=== PATIENT | female | born 1945 | race Caucasian/White ===

== ENCOUNTER 2020-05-18 17:12 | Inpatient (IN) ==
[2020-05-18] MEDS ORDERED: 0.9 % Sodium Chloride 1,000 ML IVC ONE (17:15)
[2020-05-18 18:00] LABS: Bilirubin,Urine Negative (Negative); Blood,Urine Negative (Negative); Clarity,Urine Clear (Clear); Color,Urine Light-Yellow (Yellow); Glucose,Urine (UA) Normal (Normal); Ketones,Urine Negative (Negative); Leukocyte Esterase,Urine Negative (Negative); Nitrite,Urine Negative (Negative); Protein,Urine Negative (Neg-Trace); Specific Gravity,Urine 1.013 (1.010-1.025); Urobilinogen,Urine Normal (Normal)
[2020-05-18] MEDS ORDERED: Piperacillin/Tazobactam 3.375 GM in 0.9 % Sodium Chloride Mini Bag 100 ML IVPB ONE (18:11)
[2020-05-18] MEDS ORDERED: Azithromycin 500 MG in 0.9 % Sodium Chloride 250 ML IVPB ONE (18:11)
[2020-05-18] MEDS ORDERED: Vancomycin 1,250 MG/262.5 ML IV.SOLN IVPB ONE (18:20)
[2020-05-18 18:41] LABS: Basophils % 0.2 %; Eosinophils # 0.1 K/mcL (0.0-0.6); Eosinophils % 0.9 %; Hematocrit 35.3 % (35.3-44.9); Hemoglobin 10.5 g/dL (11.5-15.4); Immature Granulocytes % 0.6 % (0-4); Lymphocytes # 0.4 K/mcL (0.6-4.6); Lymphocytes % 4.1 %; Mean Corpuscular HGB Conc 29.7 g/dL (31.6-35.5); Mean Corpuscular Hemoglobin 22.9 pg (28.0-33.3); Mean Corpuscular Volume 77.1 fL (83.0-100.0); Mean Platelet Volume 9.7 fL (9.4-12.4); Monocytes # 0.3 K/mcL (0.0-1.3); Monocytes % 3.6 %; Neutrophils # 7.8 K/mcL (1.6-8.9); Platelet Count 314 K/mcL (140-400); Red Blood Count 4.58 M/mcL (3.82-4.97); Red Cell Distribution Width 18.7 % (11.5-14.5); Segmented Neutrophils % 90.6 %; White Blood Count 8.6 K/mcL (4.3-11.1)
[2020-05-18 18:42] LABS: INR 1.1
[2020-05-18 19:09] LABS: Alanine Aminotransferase 8 Units/L (7-52); Albumin 3.7 g/dL (3.5-5.7); Albumin/Globulin Ratio 1.3 (1.1-2.2); Alkaline Phosphatase 88 Units/L (34-104); Aspartate Amino Transferase 15 Units/L (13-39); BUN/Creatinine Ratio 19 (6-26); Bilirubin,Indirect 0.3 mg/dL (0.0-1.0); Bilirubin,Total 0.3 mg/dL (0.3-1.0); Blood Urea Nitrogen 10 mg/dL (8-23); Calcium 8.6 mg/dL (8.6-10.3); Carbon Dioxide 26 mEq/L (23-29); Chloride 97 mEq/L (98-107); Globulin 2.8 g/dL (2.4-3.5); Glucose 110 mg/dL (70-105); Magnesium 1.7 mg/dL (1.6-2.6); Osmolality,Calculated 274 (280-300); Phosphorous 3.4 mg/dL (2.7-4.5); Potassium 4.5 mEq/L (3.5-5.1); Sodium 132 mEq/L (136-145); Total Protein 6.5 g/dL (6.4-8.9); Troponin I < 0.03 ng/mL (< 0.04); eGFR For African Americans > 60 (> 60); eGFR For Non-African Americans > 60 (> 60)
[2020-05-18 19:30] LABS: Adenovirus Not Detected (Not Detect); Coronavirus 229E Not Detected (Not Detect); Coronavirus HKU1 Not Detected (Not Detect); Coronavirus NL63 Not Detected (Not Detect); Coronavirus OC43 Not Detected (Not Detect)
[2020-05-18 19:31] LABS: Bordetella Pertussis Not Detected (Not Detect); Chlamydophila pneumoniae Not Detected (Not Detect); Human Metapneumovirus Not Detected (Not Detect); Human Rhinovirus/Enterovirus Not Detected (Not Detect); Influenza A Subtype 2009 H1 Not Detected (Not Detect); Influenza B Not Detected (Not Detect); Mycoplasma pneumoniae Not Detected (Not Detect); Parainfluenza Virus 1 Not Detected (Not Detect); Parainfluenza Virus 2 Not Detected (Not Detect); Parainfluenza Virus 3 Not Detected (Not Detect); Parainfluenza Virus 4 Not Detected (Not Detect); Respiratory Syncytial Virus Not Detected (Not Detect)
[2020-05-18] MEDS ORDERED: Naloxone 0.4 MG/ML INJ IVP PRN (19:42)
[2020-05-18] MEDS ORDERED: Ibuprofen 400 MG TABLET PO PRN (21:26)
[2020-05-18] MEDS: Budesonide/Formoterol 160/4.5 1 PUFF INH IH SCH (21:54)
[2020-05-18] MEDS: Dexamethasone 4 MG/ML VIAL IVP SCH (23:08)
[2020-05-19 01:12] LABS: Basophils % 0.1 %; Eosinophils % 0.1 %; Hemoglobin 8.7 g/dL (11.5-15.4); Immature Granulocytes % 0.6 % (0-4); Lymphocytes # 0.3 K/mcL (0.6-4.6); Lymphocytes % 2.6 %; Mean Corpuscular Hemoglobin 22.8 pg (28.0-33.3); Mean Corpuscular Volume 75.9 fL (83.0-100.0); Mean Platelet Volume 9.6 fL (9.4-12.4); Monocytes # 0.5 K/mcL (0.0-1.3); Monocytes % 4.4 %; Neutrophils # 9.4 K/mcL (1.6-8.9); Platelet Count 234 K/mcL (140-400); Red Blood Count 3.82 M/mcL (3.82-4.97); Red Cell Distribution Width 18.6 % (11.5-14.5); Segmented Neutrophils % 92.2 %; White Blood Count 10.2 K/mcL (4.3-11.1)
[2020-05-19 01:13] LABS: INR 1.3; Prothrombin Time 14.9 Seconds (9.4-12.1)
[2020-05-19] MEDS ORDERED: Acetaminophen 325 MG TABLET PO PRN (01:21)
[2020-05-19 01:26] LABS: Alanine Aminotransferase 6 Units/L (7-52); Albumin 2.8 g/dL (3.5-5.7); Albumin/Globulin Ratio 1.3 (1.1-2.2); Alkaline Phosphatase 52 Units/L (34-104); Aspartate Amino Transferase 11 Units/L (13-39); BUN/Creatinine Ratio 18 (6-26); Bilirubin,Total 0.3 mg/dL (0.3-1.0); Blood Urea Nitrogen 9 mg/dL (8-23); Calcium 7.4 mg/dL (8.6-10.3); Carbon Dioxide 22 mEq/L (23-29); Chloride 103 mEq/L (98-107); Globulin 2.2 g/dL (2.4-3.5); Glucose 125 mg/dL (70-105); Osmolality,Calculated 276 (280-300); Potassium 3.6 mEq/L (3.5-5.1); Sodium 133 mEq/L (136-145); eGFR For African Americans > 60 (> 60); eGFR For Non-African Americans > 60 (> 60)
[2020-05-19 01:53] LABS: Folate 15.8 ng/mL (3.0-16.0)
[2020-05-19 02:03] LABS: Iron < 10 mcg/dL (50-170); Transferrin 219 mg/dL (203-362)
[2020-05-19] MEDS: *HR* Enoxaparin 40 MG/0.4 ML SYRINGE SQ SCH (05:53)
[2020-05-19] MEDS: Thyroid (Amour) 30 MG TABLET PO SCH (05:53)
[2020-05-19 05:54] LABS: INR 1.3; Prothrombin Time 14.2 Seconds (9.4-12.1)
[2020-05-19 06:08] LABS: Magnesium 1.7 mg/dL (1.6-2.6); Phosphorous 3.1 mg/dL (2.7-4.5)
[2020-05-19 06:21] LABS: Thyroid Stimulating Hormone 0.549 mcIU/mL (0.340-5.600)
[2020-05-19] MEDS: Budesonide/Formoterol 160/4.5 1 PUFF INH IH SCH ×3 (07:36→22:22)
[2020-05-19] MEDS: Dexamethasone 4 MG/ML VIAL IVP SCH (08:39)
[2020-05-19] MEDS: BuPROPion SR (12 HR) 150 MG TABLET PO SCH ×2 (08:40→21:36)
[2020-05-19] MEDS: Piperacillin/Tazobactam 3.375 GM in 0.9 % Sodium Chloride Mini Bag 100 ML IVPB SCH ×2 (08:41→17:14)
[2020-05-19] MEDS: carvediloL 6.25 MG TABLET PO SCH ×2 (08:41→21:36)
[2020-05-19] MEDS: Gabapentin 300 MG CAPSULE PO SCH ×3 (08:42→21:35)
[2020-05-19] MEDS ORDERED: Aspirin 325 MG TABLET PO SCH (09:00)
[2020-05-19] MEDS: *HR* LORazepam 1 MG TABLET PO PRN ×2 (09:51→22:17)
[2020-05-19] MEDS: Iron Sucrose Complex 200 MG in 0.9 % Sodium Chloride 100 ML IVPB SCH (13:06)
[2020-05-19 14:39] LABS: Hematocrit 29.6 % (35.3-44.9); Hemoglobin 8.9 g/dL (11.5-15.4)
[2020-05-19] MEDS ORDERED: Azithromycin 500 MG in 0.9 % Sodium Chloride 250 ML IVPB SCH (20:00)
[2020-05-19] MEDS: Melatonin 3 MG TABLET PO SCH (21:35)
[2020-05-19] MEDS: Benzonatate 100 MG CAPSULE PO PRN (22:17)
[2020-05-19] MEDS ORDERED: Lidocaine 4% CREAM (LMX) 5 GM TP ONE (22:23)
[2020-05-19] MEDS: *HR* HYDROcodone/Acet 10/325 mg TABLET PO PRN (23:50)
[2020-05-20 02:01] LABS: Basophils % 0.1 %; Hematocrit 26.8 % (35.3-44.9); Hemoglobin 8.2 g/dL (11.5-15.4); Immature Granulocytes % 0.7 % (0-4); Lymphocytes # 0.5 K/mcL (0.6-4.6); Lymphocytes % 3.9 %; Mean Corpuscular HGB Conc 30.6 g/dL (31.6-35.5); Mean Corpuscular Hemoglobin 23.1 pg (28.0-33.3); Mean Corpuscular Volume 75.5 fL (83.0-100.0); Mean Platelet Volume 9.7 fL (9.4-12.4); Monocytes # 0.4 K/mcL (0.0-1.3); Monocytes % 3.6 %; Neutrophils # 11.1 K/mcL (1.6-8.9); Platelet Count 259 K/mcL (140-400); Red Blood Count 3.55 M/mcL (3.82-4.97); Red Cell Distribution Width 18.5 % (11.5-14.5); Segmented Neutrophils % 91.7 %; White Blood Count 12.1 K/mcL (4.3-11.1)
[2020-05-20 02:16] LABS: BUN/Creatinine Ratio 24 (6-26); Blood Urea Nitrogen 12 mg/dL (8-23); Calcium 8.1 mg/dL (8.6-10.3); Carbon Dioxide 22 mEq/L (23-29); Chloride 101 mEq/L (98-107); Glucose 124 mg/dL (70-105); Osmolality,Calculated 275 (280-300); Potassium 3.4 mEq/L (3.5-5.1); Sodium 132 mEq/L (136-145); eGFR For African Americans > 60 (> 60); eGFR For Non-African Americans > 60 (> 60)
[2020-05-20] MEDS: Piperacillin/Tazobactam 3.375 GM in 0.9 % Sodium Chloride Mini Bag 100 ML IVPB SCH ×3 (03:06→23:01)
[2020-05-20] MEDS: Thyroid (Amour) 30 MG TABLET PO SCH (06:29)
[2020-05-20] MEDS: *HR* Enoxaparin 40 MG/0.4 ML SYRINGE SQ SCH (06:29)
[2020-05-20] MEDS: Cyanocobalamin (B-12) 1,000 MCG TABLET PO SCH (08:53)
[2020-05-20] MEDS: Gabapentin 300 MG CAPSULE PO SCH ×3 (08:53→22:55)
[2020-05-20] MEDS: Iron Sucrose Complex 200 MG in 0.9 % Sodium Chloride 100 ML IVPB SCH (08:53)
[2020-05-20] MEDS: carvediloL 6.25 MG TABLET PO SCH ×2 (08:53→22:55)
[2020-05-20] MEDS: BuPROPion SR (12 HR) 150 MG TABLET PO SCH ×2 (08:53→22:55)
[2020-05-20] MEDS: Dexamethasone 4 MG/ML VIAL IVP SCH (08:54)
[2020-05-20] MEDS: Budesonide/Formoterol 160/4.5 1 PUFF INH IH SCH ×2 (09:40→19:46)
[2020-05-20 13:03] LABS: Hematocrit 29.4 % (35.3-44.9); Hemoglobin 8.8 g/dL (11.5-15.4)
[2020-05-20] MEDS: Vancomycin 1,500 MG/265 ML IV.SOLN IVPB SCH (14:01)
[2020-05-20] MEDS: *HR* HYDROcodone/Acet 10/325 mg TABLET PO PRN (14:14)
[2020-05-20] MEDS: Melatonin 3 MG TABLET PO SCH (22:55)
[2020-05-20] MEDS: Doxycycline 100 MG CAPSULE PO SCH (22:55)
[2020-05-20] MEDS: Benzonatate 100 MG CAPSULE PO PRN (23:00)
[2020-05-21] MEDS: Vancomycin 1,500 MG/265 ML IV.SOLN IVPB SCH (00:19)
[2020-05-21 02:17] LABS: Basophils % 0.2 %; Hematocrit 31.9 % (35.3-44.9); Hemoglobin 8.8 g/dL (11.5-15.4); Immature Granulocytes % 0.9 % (0-4); Lymphocytes # 0.4 K/mcL (0.6-4.6); Lymphocytes % 3.7 %; Mean Corpuscular HGB Conc 27.6 g/dL (31.6-35.5); Mean Corpuscular Hemoglobin 23.1 pg (28.0-33.3); Mean Platelet Volume 9.8 fL (9.4-12.4); Monocytes # 0.4 K/mcL (0.0-1.3); Monocytes % 3.8 %; Platelet Count 248 K/mcL (140-400); Red Blood Count 3.81 M/mcL (3.82-4.97); Red Cell Distribution Width 19.3 % (11.5-14.5); Segmented Neutrophils % 91.4 %; White Blood Count 10.9 K/mcL (4.3-11.1)
[2020-05-21 02:19] LABS: Mean Corpuscular Volume 83.7 fL (83.0-100.0)
[2020-05-21 02:43] LABS: Hypochromasia Present (Not Present)
[2020-05-21 02:44] LABS: Platelet Estimate Normal (Normal); Poikilocytosis 1+ (Not Present)
[2020-05-21] MEDS: Piperacillin/Tazobactam 3.375 GM in 0.9 % Sodium Chloride Mini Bag 100 ML IVPB SCH (03:06)
[2020-05-21 03:24] LABS: BUN/Creatinine Ratio 23 (6-26); Blood Urea Nitrogen 13 mg/dL (8-23); Calcium 8.1 mg/dL (8.6-10.3); Carbon Dioxide 20 mEq/L (23-29); Chloride 104 mEq/L (98-107); Glucose 158 mg/dL (70-105); Osmolality,Calculated 281 (280-300); Potassium 3.4 mEq/L (3.5-5.1); Sodium 134 mEq/L (136-145); eGFR For African Americans > 60 (> 60); eGFR For Non-African Americans > 60 (> 60)
[2020-05-21] MEDS: *HR* Enoxaparin 40 MG/0.4 ML SYRINGE SQ SCH (05:31)
[2020-05-21] MEDS: Thyroid (Amour) 30 MG TABLET PO SCH (06:06)
[2020-05-21 07:42] VITALS: BP 142/77
[2020-05-21] MEDS: Doxycycline 100 MG CAPSULE PO SCH (07:42)
[2020-05-21] MEDS: Gabapentin 300 MG CAPSULE PO SCH (07:42)
[2020-05-21] MEDS: BuPROPion SR (12 HR) 150 MG TABLET PO SCH (07:42)
[2020-05-21] MEDS: Iron Sucrose Complex 200 MG in 0.9 % Sodium Chloride 100 ML IVPB SCH (07:43)
[2020-05-21] MEDS: Cyanocobalamin (B-12) 1,000 MCG TABLET PO SCH (07:43)
[2020-05-21] MEDS: Dexamethasone 4 MG/ML VIAL IVP SCH (07:43)
[2020-05-21] MEDS: carvediloL 6.25 MG TABLET PO SCH (07:43)
[2020-05-21] MEDS: Budesonide/Formoterol 160/4.5 1 PUFF INH IH SCH (10:19)
[2020-05-24] MEDS ORDERED: Ergocalciferol (VIT D2) 50,000 UNIT (1.25MG) CAP PO SCH (09:00)
== END 2020-05-21 10:36 | DRG 871 ==
LOC: EDBD → 2NENU 17:12 → EMEROOARM 17:12 → SUATTDRO 19:45 → 2NENU 20:21
PROVIDERS: ADMIT Internal Medicine; ATTEND Student in an Organized Health Care Education/Training Program

== ENCOUNTER 2020-05-26 03:47 | Inpatient (IN) ==
[2020-05-26 04:41] LABS: Hemoglobin 10.2 g/dL (11.5-15.4); Mean Corpuscular HGB Conc 30.9 g/dL (31.6-35.5); Mean Corpuscular Hemoglobin 23.6 pg (28.0-33.3); Mean Corpuscular Volume 76.2 fL (83.0-100.0); Mean Platelet Volume 9.6 fL (9.4-12.4); Platelet Count 336 K/mcL (140-400); Red Blood Count 4.33 M/mcL (3.82-4.97); Red Cell Distribution Width 19.7 % (11.5-14.5); White Blood Count 12.9 K/mcL (4.3-11.1)
[2020-05-26] MEDS ORDERED: Piperacillin/Tazobactam 3.375 GM in Water for inj. (sterile) 20 ML IVP ONE (04:41)
[2020-05-26 04:46] LABS: INR 1.2
[2020-05-26 04:49] LABS: Activated Partial Thrombo Time 29.6 Seconds (26.0-36.0)
[2020-05-26 04:52] LABS: Bilirubin,Urine Negative (Negative); Blood,Urine Negative (Negative); Clarity,Urine Clear (Clear); Color,Urine Light-Yellow (Yellow); Glucose,Urine (UA) Normal (Normal); Ketones,Urine Negative (Negative); Leukocyte Esterase,Urine Negative (Negative); Nitrite,Urine Negative (Negative); PH,Urine 6.5 pH Units (5.0-8.0); Protein,Urine Negative (Neg-Trace); Specific Gravity,Urine 1.013 (1.010-1.025); Urobilinogen,Urine Normal (Normal)
[2020-05-26] MEDS ORDERED: Vancomycin 1,250 MG/262.5 ML IV.SOLN IVPB ONE (05:00)
[2020-05-26 05:04] LABS: Alanine Aminotransferase 32 Units/L (7-52); Albumin 3.2 g/dL (3.5-5.7); Albumin/Globulin Ratio 1.2 (1.1-2.2); Alkaline Phosphatase 72 Units/L (34-104); Aspartate Amino Transferase 32 Units/L (13-39); BUN/Creatinine Ratio 26 (6-26); Bilirubin,Direct 0.1 mg/dL (0.0-0.2); Bilirubin,Indirect 0.2 mg/dL (0.0-1.0); Bilirubin,Total 0.3 mg/dL (0.3-1.0); Blood Urea Nitrogen 11 mg/dL (8-23); C-Reactive Protein 107 mg/L (Less than 10); Calcium 8.3 mg/dL (8.6-10.3); Carbon Dioxide 25 mEq/L (23-29); Chloride 93 mEq/L (98-107); Globulin 2.7 g/dL (2.4-3.5); Glucose 65 mg/dL (70-105); Lactate Dehydrogenase 241 Units/L (140-271); Magnesium 1.8 mg/dL (1.6-2.6); Osmolality,Calculated 262 (280-300); Phosphorous 3.2 mg/dL (2.7-4.5); Potassium 4.1 mEq/L (3.5-5.1); Sodium 127 mEq/L (136-145); Total Protein 5.9 g/dL (6.4-8.9); eGFR For African Americans > 60 (> 60); eGFR For Non-African Americans > 60 (> 60)
[2020-05-26 05:05] LABS: Troponin I < 0.03 ng/mL (< 0.04)
[2020-05-26 05:19] LABS: Lymphocytes # 1.6 K/mcL (0.6-4.6); Monocytes # 0.8 K/mcL (0.0-1.3); Neutrophils # 10.6 K/mcL (1.6-8.9)
[2020-05-26 05:20] LABS: Anisocytosis 1+ (Not Present); Ferritin 639 ng/mL (10-120); Macrocytosis Present (Not Present); Platelet Estimate Normal (Normal); Polychromasia 1+ (Not Present)
[2020-05-26] MEDS ORDERED: Dexamethasone 4 MG/ML VIAL IVP ONE (06:06)
[2020-05-26] MEDS ORDERED: Ondansetron 4 MG/2 ML VIAL IVP PRN (07:09)
[2020-05-26] MEDS ORDERED: Acetaminophen 325 MG TABLET PO PRN (07:09)
[2020-05-26] MEDS ORDERED: Lidocaine Jelly 2% 30 ML JEL..ML. TP PRN (07:47)
[2020-05-26] MEDS ORDERED: Nicotine 2 MG GUM BC PRN (07:51)
[2020-05-26] MEDS: Cyanocobalamin (B-12) 1,000 MCG TABLET PO SCH (08:31)
[2020-05-26] MEDS: carvediloL 25 MG TABLET PO SCH ×2 (08:31→16:13)
[2020-05-26] MEDS: Aspirin 325 MG TABLET PO SCH (08:32)
[2020-05-26] MEDS: BuPROPion SR (12 HR) 150 MG TABLET PO SCH ×2 (08:32→20:34)
[2020-05-26] MEDS: *HR* Enoxaparin 40 MG/0.4 ML SYRINGE SQ SCH (08:32)
[2020-05-26] MEDS: Gabapentin 300 MG CAPSULE PO SCH ×3 (08:32→20:33)
[2020-05-26] MEDS: Thyroid (Amour) 30 MG TABLET PO SCH (08:34)
[2020-05-26] MEDS: Nicotine 14 MG PATCH.TD24 TD SCH (08:50)
[2020-05-26] MEDS: *HR* LORazepam 1 MG TABLET PO PRN ×2 (09:51→21:00)
[2020-05-26] MEDS: Budesonide/Formoterol 160/4.5 1 PUFF INH IH SCH ×2 (10:56→20:22)
[2020-05-26] MEDS: Piperacillin/Tazobactam 3.375 GM in 0.9 % Sodium Chloride Mini Bag 100 ML IVPB SCH ×2 (12:04→20:35)
[2020-05-26] MEDS: Melatonin 3 MG TABLET PO SCH (20:34)
[2020-05-26] MEDS: Benzonatate 100 MG CAPSULE PO PRN (21:12)
[2020-05-27 02:39] LABS: Hematocrit 31.1 % (35.3-44.9); Hemoglobin 9.3 g/dL (11.5-15.4); Mean Corpuscular HGB Conc 29.9 g/dL (31.6-35.5); Mean Corpuscular Hemoglobin 23.1 pg (28.0-33.3); Mean Corpuscular Volume 77.2 fL (83.0-100.0); Mean Platelet Volume 9.8 fL (9.4-12.4); Platelet Count 347 K/mcL (140-400); Red Blood Count 4.03 M/mcL (3.82-4.97); Red Cell Distribution Width 19.9 % (11.5-14.5); White Blood Count 13.8 K/mcL (4.3-11.1)
[2020-05-27 02:50] LABS: INR 1.2
[2020-05-27 03:00] LABS: BUN/Creatinine Ratio 26 (6-26); Blood Urea Nitrogen 15 mg/dL (8-23); Calcium 7.9 mg/dL (8.6-10.3); Carbon Dioxide 23 mEq/L (23-29); Chloride 101 mEq/L (98-107); Glucose 64 mg/dL (70-105); Magnesium 1.9 mg/dL (1.6-2.6); Osmolality,Calculated 273 (280-300); Potassium 3.9 mEq/L (3.5-5.1); Sodium 132 mEq/L (136-145); eGFR For African Americans > 60 (> 60); eGFR For Non-African Americans > 60 (> 60)
[2020-05-27] MEDS: Piperacillin/Tazobactam 3.375 GM in 0.9 % Sodium Chloride Mini Bag 100 ML IVPB SCH ×3 (04:53→21:09)
[2020-05-27] MEDS: Thyroid (Amour) 30 MG TABLET PO SCH (05:31)
[2020-05-27] MEDS: Cyanocobalamin (B-12) 1,000 MCG TABLET PO SCH (07:56)
[2020-05-27] MEDS: BuPROPion SR (12 HR) 150 MG TABLET PO SCH ×2 (07:56→21:08)
[2020-05-27] MEDS: Aspirin 325 MG TABLET PO SCH (07:56)
[2020-05-27] MEDS: Gabapentin 300 MG CAPSULE PO SCH ×3 (07:56→21:08)
[2020-05-27] MEDS: *HR* Enoxaparin 40 MG/0.4 ML SYRINGE SQ SCH (07:56)
[2020-05-27] MEDS: carvediloL 25 MG TABLET PO SCH ×2 (07:56→16:29)
[2020-05-27] MEDS: Nicotine 14 MG PATCH.TD24 TD SCH (07:57)
[2020-05-27] MEDS: *HR* LORazepam 1 MG TABLET PO PRN ×2 (08:20→12:35)
[2020-05-27] MEDS: Budesonide/Formoterol 160/4.5 1 PUFF INH IH SCH ×2 (08:21→22:16)
[2020-05-27] MEDS ORDERED: Dexamethasone 4 MG/ML VIAL IVP SCH (09:00)
[2020-05-27] MEDS: Dexamethasone 4 MG/ML VIAL IVP SCH (12:32)
[2020-05-27] MEDS ORDERED: Bumetanide 1 MG/4 ML VIAL IVP ONE (13:59)
[2020-05-27 14:44] LABS: VBG HCO3 25 mEq/L (21-27); VBG PCO2 47 mmHg (41-51); VBG PH 7.34 pH Units (7.32-7.42); VBG PO2 61 mmHg (25-50)
[2020-05-27] MEDS: Doxycycline 100 MG in 0.9 % Sodium Chloride Mini Bag 100 ML IVPB SCH (16:28)
[2020-05-27] MEDS: Dexmedetomidine HCl 400 MCG/100 ML MLS IVC SCH (17:27)
[2020-05-27] MEDS: Melatonin 3 MG TABLET PO SCH (21:08)
[2020-05-28] MEDS: Doxycycline 100 MG in 0.9 % Sodium Chloride Mini Bag 100 ML IVPB SCH (03:06)
[2020-05-28 03:45] LABS: Basophils % 0.3 %; Eosinophils % 0.1 %; Hematocrit 29.1 % (35.3-44.9); Hemoglobin 8.9 g/dL (11.5-15.4); Immature Granulocytes % 4.7 % (0-4); Lymphocytes # 0.7 K/mcL (0.6-4.6); Lymphocytes % 5.2 %; Mean Corpuscular HGB Conc 30.6 g/dL (31.6-35.5); Mean Corpuscular Hemoglobin 23.5 pg (28.0-33.3); Mean Platelet Volume 9.4 fL (9.4-12.4); Monocytes # 0.3 K/mcL (0.0-1.3); Monocytes % 2.7 %; Neutrophils # 10.9 K/mcL (1.6-8.9); Platelet Count 357 K/mcL (140-400); Red Blood Count 3.78 M/mcL (3.82-4.97); Red Cell Distribution Width 19.8 % (11.5-14.5); White Blood Count 12.6 K/mcL (4.3-11.1)
[2020-05-28] MEDS: Piperacillin/Tazobactam 3.375 GM in 0.9 % Sodium Chloride Mini Bag 100 ML IVPB SCH ×3 (05:14→19:26)
[2020-05-28] MEDS: Thyroid (Amour) 30 MG TABLET PO SCH (05:28)
[2020-05-28 06:49] LABS: BUN/Creatinine Ratio 21 (6-26); Blood Urea Nitrogen 12 mg/dL (8-23); Carbon Dioxide 23 mEq/L (23-29); Chloride 98 mEq/L (98-107); Glucose 120 mg/dL (70-105); Osmolality,Calculated 273 (280-300); Sodium 131 mEq/L (136-145); eGFR For African Americans > 60 (> 60); eGFR For Non-African Americans > 60 (> 60)
[2020-05-28 06:50] LABS: Albumin 2.8 g/dL (3.5-5.7); Albumin/Globulin Ratio 1.1 (1.1-2.2); Bilirubin,Indirect 0.4 mg/dL (0.0-1.0); Bilirubin,Total 0.4 mg/dL (0.3-1.0); Globulin 2.6 g/dL (2.4-3.5); Total Protein 5.4 g/dL (6.4-8.9)
[2020-05-28] MEDS: Dexamethasone 4 MG/ML VIAL IVP SCH (07:47)
[2020-05-28] MEDS: Aspirin 325 MG TABLET PO SCH (07:48)
[2020-05-28] MEDS: Cyanocobalamin (B-12) 1,000 MCG TABLET PO SCH (07:48)
[2020-05-28] MEDS: *HR* Enoxaparin 40 MG/0.4 ML SYRINGE SQ SCH (07:48)
[2020-05-28] MEDS: Gabapentin 300 MG CAPSULE PO SCH ×3 (07:48→19:26)
[2020-05-28] MEDS: BuPROPion SR (12 HR) 150 MG TABLET PO SCH ×2 (07:48→19:26)
[2020-05-28] MEDS: carvediloL 25 MG TABLET PO SCH ×2 (07:49→16:33)
[2020-05-28] MEDS: Nicotine 14 MG PATCH.TD24 TD SCH (07:49)
[2020-05-28] MEDS: Bumetanide 1 MG/4 ML VIAL IVP SCH (07:56)
[2020-05-28] MEDS: Dexmedetomidine HCl 400 MCG/100 ML MLS IVC SCH ×2 (08:07→17:35)
[2020-05-28] MEDS: Budesonide/Formoterol 160/4.5 1 PUFF INH IH SCH ×2 (09:44→22:57)
[2020-05-28] MEDS: *HR* LORazepam 1 MG TABLET PO PRN ×2 (16:33→21:26)
[2020-05-28] MEDS ORDERED: 0.9 % Sodium Chloride 500 ML ONE (17:52)
[2020-05-28] MEDS: Melatonin 3 MG TABLET PO SCH (19:25)
[2020-05-28] MEDS: Doxycycline 100 MG CAPSULE PO SCH (19:26)
[2020-05-29 03:01] LABS: Basophils # 0.1 K/mcL (0.0-0.2); Basophils % 0.4 %; Eosinophils % 0.1 %; Hematocrit 31.6 % (35.3-44.9); Hemoglobin 9.6 g/dL (11.5-15.4); Immature Granulocytes % 3.5 % (0-4); Lymphocytes # 0.8 K/mcL (0.6-4.6); Lymphocytes % 5.5 %; Mean Corpuscular HGB Conc 30.4 g/dL (31.6-35.5); Mean Corpuscular Hemoglobin 23.6 pg (28.0-33.3); Mean Corpuscular Volume 77.8 fL (83.0-100.0); Monocytes # 0.5 K/mcL (0.0-1.3); Monocytes % 3.3 %; Neutrophils # 12.3 K/mcL (1.6-8.9); Platelet Count 391 K/mcL (140-400); Red Blood Count 4.06 M/mcL (3.82-4.97); Segmented Neutrophils % 87.2 %; White Blood Count 14.1 K/mcL (4.3-11.1)
[2020-05-29 03:07] LABS: Fibrinogen 473 mg/dL (169-393)
[2020-05-29 03:08] LABS: D-Dimer 999 ng/mLFEU (0-500)
[2020-05-29 03:20] LABS: BUN/Creatinine Ratio 23 (6-26); Blood Urea Nitrogen 10 mg/dL (8-23); Calcium 8.3 mg/dL (8.6-10.3); Carbon Dioxide 23 mEq/L (23-29); Chloride 98 mEq/L (98-107); Glucose 110 mg/dL (70-105); Osmolality,Calculated 270 (280-300); Potassium 3.8 mEq/L (3.5-5.1); Sodium 130 mEq/L (136-145); eGFR For African Americans > 60 (> 60); eGFR For Non-African Americans > 60 (> 60)
[2020-05-29] MEDS: Piperacillin/Tazobactam 3.375 GM in 0.9 % Sodium Chloride Mini Bag 100 ML IVPB SCH ×3 (04:39→19:42)
[2020-05-29] MEDS: Thyroid (Amour) 30 MG TABLET PO SCH (05:25)
[2020-05-29 06:53] LABS: Acinetobacter baumannii by PCR Not Detected (Not Detect); Candida albicans by PCR Not Detected (Not Detect); Candida glabrata by PCR Not Detected (Not Detect); Candida krusei by PCR Not Detected (Not Detect); Candida parapsilosis by PCR Not Detected (Not Detect); Candida tropicalis by PCR Not Detected (Not Detect); Enterobacter cloacae Cmplx PCR Not Detected (Not Detect); Enterobacteriaceae by PCR Not Detected (Not Detect); Enterococcus by PCR Not Detected (Not Detect); Escherichia coli by PCR Not Detected (Not Detect); Klebsiella oxytoca by PCR Not Detected (Not Detect); Klebsiella pneumoniae by PCR Not Detected (Not Detect); Proteus by PCR Not Detected (Not Detect); Pseudomonas aeruginosa by PCR Not Detected (Not Detect); Serratia marcescens by PCR Not Detected (Not Detect); Staphylococcus aureus by PCR Not Detected (Not Detect); Staphylococcus by PCR Not Detected (Not Detect); Streptococcus agalactiae(B)PCR Not Detected (Not Detect); Streptococcus by PCR Not Detected (Not Detect); Streptococcus pneumoniae PCR Not Detected (Not Detect); Streptococcus pyogenes (A) PCR Not Detected (Not Detect); blaKPC Carbapenem-Resist Gene Not Detected (Not Detect); mecA Methicillin-Resist Gene Not Detected (Not Detect); vanA/B Vancomycin-Resist Genes Not Detected (Not Detect)
[2020-05-29] MEDS: *HR* Enoxaparin 40 MG/0.4 ML SYRINGE SQ SCH (07:47)
[2020-05-29] MEDS: Cyanocobalamin (B-12) 1,000 MCG TABLET PO SCH (07:47)
[2020-05-29] MEDS: Aspirin 325 MG TABLET PO SCH (07:47)
[2020-05-29] MEDS: Dexamethasone 4 MG/ML VIAL IVP SCH (07:47)
[2020-05-29] MEDS: Gabapentin 300 MG CAPSULE PO SCH ×3 (07:47→19:43)
[2020-05-29] MEDS: BuPROPion SR (12 HR) 150 MG TABLET PO SCH ×2 (07:47→19:43)
[2020-05-29] MEDS: Doxycycline 100 MG CAPSULE PO SCH ×2 (07:47→19:43)
[2020-05-29] MEDS: carvediloL 25 MG TABLET PO SCH ×2 (07:48→15:59)
[2020-05-29] MEDS: Bumetanide 1 MG/4 ML VIAL IVP SCH (07:48)
[2020-05-29] MEDS: Nicotine 14 MG PATCH.TD24 TD SCH (07:49)
[2020-05-29] MEDS: Budesonide/Formoterol 160/4.5 1 PUFF INH IH SCH ×2 (08:10→21:33)
[2020-05-29] MEDS: *HR* LORazepam 1 MG TABLET PO PRN ×2 (11:03→16:01)
[2020-05-29] MEDS ORDERED: 0.9 % Sodium Chloride 500 ML ONE (11:53)
[2020-05-29] MEDS: Dexmedetomidine HCl 400 MCG/100 ML MLS IVC SCH (14:00)
[2020-05-29] MEDS: Melatonin 3 MG TABLET PO SCH (19:43)
[2020-05-30] MEDS: *HR* LORazepam 1 MG TABLET PO PRN ×4 (01:40→23:11)
[2020-05-30] MEDS: Piperacillin/Tazobactam 3.375 GM in 0.9 % Sodium Chloride Mini Bag 100 ML IVPB SCH ×3 (04:24→20:48)
[2020-05-30 04:31] LABS: Basophils # 0.1 K/mcL (0.0-0.2); Basophils % 0.4 %; Eosinophils # 0.1 K/mcL (0.0-0.6); Eosinophils % 0.6 %; Hematocrit 30.1 % (35.3-44.9); Hemoglobin 8.9 g/dL (11.5-15.4); Immature Granulocytes % 2.8 % (0-4); Lymphocytes % 6.8 %; Mean Corpuscular HGB Conc 29.6 g/dL (31.6-35.5); Mean Corpuscular Hemoglobin 22.9 pg (28.0-33.3); Mean Corpuscular Volume 77.6 fL (83.0-100.0); Mean Platelet Volume 9.3 fL (9.4-12.4); Monocytes # 0.4 K/mcL (0.0-1.3); Monocytes % 2.5 %; Neutrophils # 12.1 K/mcL (1.6-8.9); Platelet Count 417 K/mcL (140-400); Red Blood Count 3.88 M/mcL (3.82-4.97); Red Cell Distribution Width 20.4 % (11.5-14.5); Segmented Neutrophils % 86.9 %; White Blood Count 13.9 K/mcL (4.3-11.1)
[2020-05-30] MEDS: Thyroid (Amour) 30 MG TABLET PO SCH (04:34)
[2020-05-30 04:48] LABS: BUN/Creatinine Ratio 29 (6-26); Blood Urea Nitrogen 16 mg/dL (8-23); Calcium 8.5 mg/dL (8.6-10.3); Carbon Dioxide 27 mEq/L (23-29); Chloride 98 mEq/L (98-107); Glucose 56 mg/dL (70-105); Osmolality,Calculated 275 (280-300); Potassium 3.2 mEq/L (3.5-5.1); Sodium 133 mEq/L (136-145); eGFR For African Americans > 60 (> 60); eGFR For Non-African Americans > 60 (> 60)
[2020-05-30] MEDS: Benzonatate 100 MG CAPSULE PO PRN (06:23)
[2020-05-30] MEDS: *HR* HYDROcodone/Acet 10/325 mg TABLET PO PRN ×2 (06:23→23:33)
[2020-05-30] MEDS ORDERED: Potassium Chloride Elixir 20 MEQ/15 ML UDC PO ONE (07:33)
[2020-05-30] MEDS: Gabapentin 300 MG CAPSULE PO SCH ×3 (08:10→20:47)
[2020-05-30] MEDS: *HR* Enoxaparin 40 MG/0.4 ML SYRINGE SQ SCH (08:10)
[2020-05-30] MEDS: Bumetanide 1 MG/4 ML VIAL IVP SCH ×2 (08:10→20:47)
[2020-05-30] MEDS: Dexamethasone 4 MG/ML VIAL IVP SCH (08:10)
[2020-05-30] MEDS: Aspirin 325 MG TABLET PO SCH (08:11)
[2020-05-30] MEDS: Cyanocobalamin (B-12) 1,000 MCG TABLET PO SCH (08:11)
[2020-05-30] MEDS: Doxycycline 100 MG CAPSULE PO SCH ×2 (08:11→20:47)
[2020-05-30] MEDS: BuPROPion SR (12 HR) 150 MG TABLET PO SCH ×2 (08:11→20:47)
[2020-05-30] MEDS: carvediloL 25 MG TABLET PO SCH ×2 (08:11→16:13)
[2020-05-30] MEDS: Nicotine 14 MG PATCH.TD24 TD SCH ×2 (08:11→08:57)
[2020-05-30] MEDS: Budesonide/Formoterol 160/4.5 1 PUFF INH IH SCH ×2 (09:30→21:53)
[2020-05-30] MEDS ORDERED: 0.9 % Sodium Chloride 250 ML ONE (11:21)
[2020-05-30] MEDS: Melatonin 3 MG TABLET PO SCH (20:47)
[2020-05-31 01:47] LABS: Basophils % 0.3 %; Eosinophils % 0.3 %; Hemoglobin 8.6 g/dL (11.5-15.4); Immature Granulocytes % 2.2 % (0-4); Lymphocytes # 0.5 K/mcL (0.6-4.6); Lymphocytes % 4.3 %; Mean Corpuscular HGB Conc 30.7 g/dL (31.6-35.5); Mean Corpuscular Hemoglobin 23.4 pg (28.0-33.3); Mean Corpuscular Volume 76.3 fL (83.0-100.0); Mean Platelet Volume 9.4 fL (9.4-12.4); Monocytes # 0.3 K/mcL (0.0-1.3); Monocytes % 2.6 %; Neutrophils # 10.8 K/mcL (1.6-8.9); Platelet Count 434 K/mcL (140-400); Red Blood Count 3.67 M/mcL (3.82-4.97); Red Cell Distribution Width 20.2 % (11.5-14.5); Segmented Neutrophils % 90.3 %
[2020-05-31 01:56] LABS: Fibrinogen 506 mg/dL (169-393)
[2020-05-31 01:59] LABS: D-Dimer 1905 ng/mLFEU (0-500)
[2020-05-31 02:06] LABS: BUN/Creatinine Ratio 32 (6-26); Blood Urea Nitrogen 16 mg/dL (8-23); Calcium 8.3 mg/dL (8.6-10.3); Carbon Dioxide 25 mEq/L (23-29); Chloride 99 mEq/L (98-107); Glucose 85 mg/dL (70-105); Osmolality,Calculated 276 (280-300); Potassium 3.6 mEq/L (3.5-5.1); Sodium 133 mEq/L (136-145); eGFR For African Americans > 60 (> 60); eGFR For Non-African Americans > 60 (> 60)
[2020-05-31] MEDS: Piperacillin/Tazobactam 3.375 GM in 0.9 % Sodium Chloride Mini Bag 100 ML IVPB SCH (04:40)
[2020-05-31] MEDS: Thyroid (Amour) 30 MG TABLET PO SCH (05:39)
[2020-05-31] MEDS: *HR* LORazepam 1 MG TABLET PO PRN (06:49)
[2020-05-31] MEDS: Budesonide/Formoterol 160/4.5 1 PUFF INH IH SCH ×2 (10:06→21:35)
[2020-05-31] MEDS: Gabapentin 300 MG CAPSULE PO SCH ×6 (10:56→19:37)
[2020-05-31] MEDS: carvediloL 25 MG TABLET PO SCH ×2 (10:56→17:18)
[2020-05-31] MEDS: Doxycycline 100 MG CAPSULE PO SCH ×4 (10:56→19:32)
[2020-05-31] MEDS: Aspirin 325 MG TABLET PO SCH ×3 (10:56→14:00)
[2020-05-31] MEDS: BuPROPion SR (12 HR) 150 MG TABLET PO SCH ×4 (10:56→19:33)
[2020-05-31] MEDS: Cyanocobalamin (B-12) 1,000 MCG TABLET PO SCH (10:57)
[2020-05-31] MEDS: Bumetanide 1 MG/4 ML VIAL IVP SCH ×2 (10:57→19:31)
[2020-05-31] MEDS: Dexamethasone 4 MG/ML VIAL IVP SCH (10:57)
[2020-05-31] MEDS: *HR* Enoxaparin 40 MG/0.4 ML SYRINGE SQ SCH (10:57)
[2020-05-31] MEDS: Nicotine 14 MG PATCH.TD24 TD SCH (10:58)
[2020-05-31] MEDS: Benzonatate 100 MG CAPSULE PO PRN (11:11)
[2020-05-31] MEDS ORDERED: *HR* LORazepam 2 MG/ML VIAL IVP ONE (13:45)
[2020-05-31] MEDS ORDERED: Dexmedetomidine HCl 400 MCG/100 ML MLS IVC ONE (13:46)
[2020-05-31] MEDS ORDERED: *HR* LORazepam 2 MG/ML VIAL ONE (13:47)
[2020-05-31] MEDS: Melatonin 3 MG TABLET PO SCH (19:32)
[2020-05-31] MEDS: *HR* LORazepam 2 MG/ML VIAL IVP PRN (19:34)
[2020-06-01] MEDS: *HR* LORazepam 2 MG/ML VIAL IVP PRN ×4 (01:57→21:49)
[2020-06-01 04:29] LABS: Basophils % 0.4 %; Eosinophils % 0.2 %; Hemoglobin 9.1 g/dL (11.5-15.4); Immature Granulocytes % 2.8 % (0-4); Lymphocytes # 0.6 K/mcL (0.6-4.6); Lymphocytes % 6.3 %; Mean Corpuscular HGB Conc 30.3 g/dL (31.6-35.5); Mean Corpuscular Hemoglobin 23.5 pg (28.0-33.3); Mean Corpuscular Volume 77.5 fL (83.0-100.0); Mean Platelet Volume 9.3 fL (9.4-12.4); Monocytes # 0.3 K/mcL (0.0-1.3); Monocytes % 2.7 %; Neutrophils # 8.7 K/mcL (1.6-8.9); Platelet Count 456 K/mcL (140-400); Red Blood Count 3.87 M/mcL (3.82-4.97); Red Cell Distribution Width 20.7 % (11.5-14.5); Segmented Neutrophils % 87.6 %; White Blood Count 9.9 K/mcL (4.3-11.1)
[2020-06-01 04:37] LABS: Fibrinogen 473 mg/dL (169-393)
[2020-06-01 04:41] LABS: D-Dimer 2003 ng/mLFEU (0-500)
[2020-06-01 04:50] LABS: BUN/Creatinine Ratio 40 (6-26); Blood Urea Nitrogen 22 mg/dL (8-23); Calcium 8.8 mg/dL (8.6-10.3); Carbon Dioxide 29 mEq/L (23-29); Chloride 97 mEq/L (98-107); Glucose 79 mg/dL (70-105); Osmolality,Calculated 280 (280-300); Potassium 3.5 mEq/L (3.5-5.1); Sodium 134 mEq/L (136-145); eGFR For African Americans > 60 (> 60); eGFR For Non-African Americans > 60 (> 60)
[2020-06-01 05:09] LABS: Ferritin 266 ng/mL (10-120)
[2020-06-01] MEDS: Thyroid (Amour) 30 MG TABLET PO SCH (05:39)
[2020-06-01] MEDS: Bumetanide 1 MG/4 ML VIAL IVP SCH ×2 (07:39→20:31)
[2020-06-01] MEDS: carvediloL 25 MG TABLET PO SCH ×2 (07:39→16:27)
[2020-06-01] MEDS: Cyanocobalamin (B-12) 1,000 MCG TABLET PO SCH (07:40)
[2020-06-01] MEDS: BuPROPion SR (12 HR) 150 MG TABLET PO SCH ×2 (07:40→20:31)
[2020-06-01] MEDS: Nicotine 14 MG PATCH.TD24 TD SCH (07:40)
[2020-06-01] MEDS: Gabapentin 300 MG CAPSULE PO SCH ×3 (07:40→20:31)
[2020-06-01] MEDS: Dexamethasone 4 MG/ML VIAL IVP SCH (07:42)
[2020-06-01] MEDS: *HR* Enoxaparin 40 MG/0.4 ML SYRINGE SQ SCH (07:44)
[2020-06-01] MEDS: Aspirin 325 MG TABLET PO SCH (07:44)
[2020-06-01] MEDS: Budesonide/Formoterol 160/4.5 1 PUFF INH IH SCH ×2 (10:24→22:17)
[2020-06-01] MEDS ORDERED: Haloperidol Lactate 5 MG/ML VIAL IVP PRN (12:48)
[2020-06-01] MEDS: Benzonatate 100 MG CAPSULE PO PRN ×2 (13:20→23:11)
[2020-06-01] MEDS: Melatonin 3 MG TABLET PO SCH (20:31)
[2020-06-02] MEDS: *HR* LORazepam 2 MG/ML VIAL IVP PRN ×2 (03:07→08:44)
[2020-06-02 03:26] LABS: Basophils % 0.2 %; Eosinophils # 0.1 K/mcL (0.0-0.6); Eosinophils % 0.7 %; Hematocrit 31.7 % (35.3-44.9); Hemoglobin 9.6 g/dL (11.5-15.4); Lymphocytes # 0.8 K/mcL (0.6-4.6); Lymphocytes % 6.2 %; Mean Corpuscular HGB Conc 30.3 g/dL (31.6-35.5); Mean Corpuscular Hemoglobin 23.5 pg (28.0-33.3); Mean Corpuscular Volume 77.7 fL (83.0-100.0); Mean Platelet Volume 9.5 fL (9.4-12.4); Monocytes # 0.3 K/mcL (0.0-1.3); Neutrophils # 10.9 K/mcL (1.6-8.9); Platelet Count 462 K/mcL (140-400); Red Blood Count 4.08 M/mcL (3.82-4.97); Red Cell Distribution Width 20.6 % (11.5-14.5); Segmented Neutrophils % 88.9 %; White Blood Count 12.2 K/mcL (4.3-11.1)
[2020-06-02 03:45] LABS: Fibrinogen 516 mg/dL (169-393)
[2020-06-02 03:48] LABS: BUN/Creatinine Ratio 38 (6-26); Blood Urea Nitrogen 23 mg/dL (8-23); Carbon Dioxide 30 mEq/L (23-29); Chloride 96 mEq/L (98-107); D-Dimer 2442 ng/mLFEU (0-500); Glucose 110 mg/dL (70-105); Osmolality,Calculated 282 (280-300); Potassium 3.3 mEq/L (3.5-5.1); Sodium 134 mEq/L (136-145); eGFR For African Americans > 60 (> 60); eGFR For Non-African Americans > 60 (> 60)
[2020-06-02] MEDS: Thyroid (Amour) 30 MG TABLET PO SCH (07:04)
[2020-06-02] MEDS: Cyanocobalamin (B-12) 1,000 MCG TABLET PO SCH (09:00)
[2020-06-02] MEDS: Aspirin 325 MG TABLET PO SCH (09:00)
[2020-06-02] MEDS: BuPROPion SR (12 HR) 150 MG TABLET PO SCH ×2 (09:00→19:29)
[2020-06-02] MEDS: *HR* Enoxaparin 40 MG/0.4 ML SYRINGE SQ SCH (09:00)
[2020-06-02] MEDS: *HR* HYDROcodone/Acet 10/325 mg TABLET PO PRN ×2 (09:00→19:29)
[2020-06-02] MEDS: Bumetanide 1 MG/4 ML VIAL IVP SCH ×2 (09:00→19:30)
[2020-06-02] MEDS: carvediloL 25 MG TABLET PO SCH ×2 (09:00→17:34)
[2020-06-02] MEDS: Gabapentin 300 MG CAPSULE PO SCH ×3 (09:00→19:30)
[2020-06-02] MEDS: Dexamethasone 4 MG/ML VIAL IVP SCH (09:00)
[2020-06-02] MEDS: Nicotine 14 MG PATCH.TD24 TD SCH (09:44)
[2020-06-02] MEDS ORDERED: diazePAM 5 MG TABLET PO SCH (10:15)
[2020-06-02] MEDS: Budesonide/Formoterol 160/4.5 1 PUFF INH IH SCH ×2 (11:18→21:35)
[2020-06-02] MEDS ORDERED: *HR* LORazepam 2 MG/ML VIAL IVP ONE (14:29)
[2020-06-02] MEDS: Melatonin 3 MG TABLET PO SCH (19:30)
[2020-06-03] MEDS: *HR* LORazepam 2 MG/ML VIAL IVP PRN ×4 (02:05→18:57)
[2020-06-03 03:00] LABS: Basophils % 0.2 %; Eosinophils % 0.4 %; Hematocrit 33.2 % (35.3-44.9); Hemoglobin 9.7 g/dL (11.5-15.4); Immature Granulocytes % 2.9 % (0-4); Lymphocytes # 0.7 K/mcL (0.6-4.6); Lymphocytes % 7.8 %; Mean Corpuscular HGB Conc 29.2 g/dL (31.6-35.5); Mean Corpuscular Hemoglobin 23.3 pg (28.0-33.3); Mean Corpuscular Volume 79.6 fL (83.0-100.0); Mean Platelet Volume 9.1 fL (9.4-12.4); Monocytes # 0.2 K/mcL (0.0-1.3); Monocytes % 2.2 %; Neutrophils # 7.9 K/mcL (1.6-8.9); Platelet Count 455 K/mcL (140-400); Red Blood Count 4.17 M/mcL (3.82-4.97); Segmented Neutrophils % 86.5 %; White Blood Count 9.1 K/mcL (4.3-11.1)
[2020-06-03 03:27] LABS: BUN/Creatinine Ratio 42 (6-26); Blood Urea Nitrogen 21 mg/dL (8-23); Calcium 8.7 mg/dL (8.6-10.3); Carbon Dioxide 31 mEq/L (23-29); Chloride 97 mEq/L (98-107); Glucose 86 mg/dL (70-105); Osmolality,Calculated 280 (280-300); Potassium 4.3 mEq/L (3.5-5.1); Sodium 134 mEq/L (136-145); eGFR For African Americans > 60 (> 60); eGFR For Non-African Americans > 60 (> 60)
[2020-06-03] MEDS ORDERED: *HR* LORazepam 2 MG/ML VIAL IVP ONE (04:10)
[2020-06-03] MEDS: Thyroid (Amour) 30 MG TABLET PO SCH (06:17)
[2020-06-03] MEDS: carvediloL 25 MG TABLET PO SCH ×2 (09:00→17:08)
[2020-06-03] MEDS: BuPROPion SR (12 HR) 150 MG TABLET PO SCH ×3 (09:00→20:39)
[2020-06-03] MEDS: Cyanocobalamin (B-12) 1,000 MCG TABLET PO SCH (09:00)
[2020-06-03] MEDS: Nicotine 14 MG PATCH.TD24 TD SCH ×2 (09:01→10:00)
[2020-06-03] MEDS: Aspirin 325 MG TABLET PO SCH (09:01)
[2020-06-03] MEDS: Dexamethasone 4 MG/ML VIAL IVP SCH (09:01)
[2020-06-03] MEDS: *HR* HYDROcodone/Acet 10/325 mg TABLET PO PRN ×2 (09:01→17:10)
[2020-06-03] MEDS: Gabapentin 300 MG CAPSULE PO SCH ×4 (09:01→20:36)
[2020-06-03] MEDS: Bumetanide 1 MG/4 ML VIAL IVP SCH ×2 (09:01→19:58)
[2020-06-03] MEDS: *HR* Enoxaparin 40 MG/0.4 ML SYRINGE SQ SCH (09:02)
[2020-06-03] MEDS ORDERED: diazePAM 5 MG TABLET PO PRN ×2 (09:30→10:20)
[2020-06-03] MEDS: Budesonide/Formoterol 160/4.5 1 PUFF INH IH SCH ×2 (11:05→21:45)
[2020-06-03] MEDS ORDERED: Sennosides/Docusate Sodium TABLET PO PRN (15:57)
[2020-06-03] MEDS ORDERED: polyethylene glycoL 3350 17 GM POWD.PACK PO PRN (15:57)
[2020-06-03] MEDS: Dexmedetomidine HCl 400 MCG/100 ML MLS IVC SCH (19:05)
[2020-06-03] MEDS ORDERED: Dexmedetomidine HCl 400 MCG/100 ML MLS IVC ONE (19:08)
[2020-06-03] MEDS: Melatonin 3 MG TABLET PO SCH ×2 (19:58→20:36)
[2020-06-03] MEDS: diazePAM 5 MG TABLET PO SCH (20:33)
[2020-06-04] MEDS: Dexmedetomidine HCl 400 MCG/100 ML MLS IVC SCH (05:53)
[2020-06-04] MEDS: Thyroid (Amour) 30 MG TABLET PO SCH (05:55)
[2020-06-04] MEDS: carvediloL 25 MG TABLET PO SCH ×2 (07:03→14:53)
[2020-06-04] MEDS: Nicotine 14 MG PATCH.TD24 TD SCH (07:03)
[2020-06-04] MEDS: diazePAM 5 MG TABLET PO SCH (07:04)
[2020-06-04] MEDS: Dexamethasone 4 MG/ML VIAL IVP SCH (07:06)
[2020-06-04] MEDS: *HR* Enoxaparin 40 MG/0.4 ML SYRINGE SQ SCH (07:06)
[2020-06-04] MEDS: BuPROPion SR (12 HR) 150 MG TABLET PO SCH (07:07)
[2020-06-04] MEDS: Gabapentin 300 MG CAPSULE PO SCH ×2 (07:07→13:50)
[2020-06-04] MEDS: Bumetanide 1 MG/4 ML VIAL IVP SCH (07:07)
[2020-06-04] MEDS: Cyanocobalamin (B-12) 1,000 MCG TABLET PO SCH (07:08)
[2020-06-04 07:29] LABS: Basophils % 0.3 %; Eosinophils # 0.2 K/mcL (0.0-0.6); Hematocrit 35.4 % (35.3-44.9); Hemoglobin 10.4 g/dL (11.5-15.4); Immature Granulocytes % 3.4 % (0-4); Lymphocytes % 10.5 %; Mean Corpuscular HGB Conc 29.4 g/dL (31.6-35.5); Mean Corpuscular Hemoglobin 23.2 pg (28.0-33.3); Mean Corpuscular Volume 78.8 fL (83.0-100.0); Mean Platelet Volume 9.4 fL (9.4-12.4); Monocytes # 0.2 K/mcL (0.0-1.3); Monocytes % 1.8 %; Neutrophils # 7.6 K/mcL (1.6-8.9); Platelet Count 440 K/mcL (140-400); Red Blood Count 4.49 M/mcL (3.82-4.97); Red Cell Distribution Width 20.9 % (11.5-14.5); White Blood Count 9.2 K/mcL (4.3-11.1)
[2020-06-04 07:37] LABS: BUN/Creatinine Ratio 51 (6-26); Blood Urea Nitrogen 27 mg/dL (8-23); Calcium 8.9 mg/dL (8.6-10.3); Carbon Dioxide 30 mEq/L (23-29); Chloride 94 mEq/L (98-107); Glucose 103 mg/dL (70-105); Osmolality,Calculated 279 (280-300); Potassium 3.7 mEq/L (3.5-5.1); Sodium 132 mEq/L (136-145); eGFR For African Americans > 60 (> 60); eGFR For Non-African Americans > 60 (> 60)
[2020-06-04] MEDS ORDERED: Aspirin Enteric Coated 81 MG Tablet PO SCH (09:00)
[2020-06-04] MEDS: Budesonide/Formoterol 160/4.5 1 PUFF INH IH SCH (10:12)
[2020-06-04 12:00] VITALS: BP 132/98
[2020-06-04] MEDS: *HR* LORazepam 2 MG/ML VIAL IVP PRN (12:08)
[2020-06-04] MEDS ORDERED: *HR* LORazepam 2 MG/ML VIAL IVP STA ×2 (12:15→13:38)
[2020-06-04] MEDS ORDERED: *HR* LORazepam 2 MG/ML VIAL ONE ×2 (12:17→13:43)
[2020-06-04 12:24] LABS: ABG Base Excess 3 mEq/L (-2 to 3); ABG HCO3 26 mEq/L (21-27); ABG Oxygen Saturation 92 % (95-98); ABG PCO2 34 mmHg (35-45); ABG PO2 59 mmHg (85-104); ABG TCO2 27 mEq/L (20-26)
[2020-06-04] MEDS ORDERED: Morphine Sulfate 2 MG/ML SYRINGE IVP ONE (12:41)
[2020-06-04] MEDS ORDERED: Haloperidol Lactate 5 MG/ML VIAL IVP ONE (12:44)
[2020-06-04] MEDS ORDERED: Morphine Sulfate 2 MG/ML SYRINGE IVP PRN (12:49)
[2020-06-04] MEDS ORDERED: *HR* Midazolam HCl 2 MG/2 ML VIAL IVP ONE (13:01)
[2020-06-04] MEDS ORDERED: *HR* FentaNYL (PF) 100 MCG/2 ML VIAL IVP ONE ×2 (13:06→13:22)
[2020-06-04] MEDS ORDERED: FentaNYL (PF) 1,000 MCG/100 ML IV.SOLN IVC SCH (13:15)
[2020-06-04] MEDS ORDERED: *HR* LORazepam 2 MG/ML VIAL IVP PRN (14:10)
== END 2020-06-04 17:29 | disposition expired | DRG 177 ==
LOC: 2NENU 03:47 → EMEROOARM 03:47 → SUATTDRO 06:25 → 2NENU 07:04 → SUATTDRO 07:09
PROVIDERS: ADMIT Internal Medicine; ATTEND Family Medicine